=== PATIENT | female | born 1985 | race Caucasian/White ===

== ENCOUNTER 2024-05-24 06:28 | Day surgery (SDC) | payer BC ==
[2024-05-22 10:00] LABS: Specific Gravity 1.011 (1.005-1.030); Sqamous Epithelial <5 /HPF (None Seen); Urine Bacteria <20 /HPF (<20); Urine Bilirubin NEGATIVE (Negative); Urine Blood 1+ (Negative); Urine Clarity Clear (Clear); Urine Color Light-Yellow (Yellow); Urine Culture Reflex Order NOT NEEDED; Urine Glucose NEGATIVE (Negative); Urine Ketones NEGATIVE (Negative); Urine Microscopic Reflex YN ORDER UMIC; Urine Nitrite NEGATIVE (Negative); Urine Protein NEGATIVE (Negative); Urine RBC <5 /HPF (None Seen); Urine Urobilinogen Normal (Normal); Urine WBC <5 /HPF (<5); Urine Yeast (Budding) Trace /HPF (None Seen)
[2024-05-22 10:10] LABS: Absolute Basophils 0.1 K/uL (0-0.5); Absolute Eosinophils 0.3 K/uL (0-0.5); Absolute Lymphocytes (CBC) 2.2 K/uL (0.7-4.9); Absolute Neutrophil 6.2 K/uL (1.8-8.0); Basophils % 0.9 % (0-1.3); Eosinophils % 3.2 % (0-4.4); Hematocrit 40.1 % (36.0-45.0); Hemoglobin 13.5 g/dL (12.0-15.0); Lymphocytes % 22.8 % (15.3-44.8); MCH 29.9 pg (27.0-35.0); MCHC 33.5 g/dL (32.0-36.0); MCV 89.3 fL (80-100); MPV 7.5 fL (7.6-11.3); Neutrophils % 63.1 % (41.7-73.7); Nucleated Red Blood Cells % 0.1 % (0-0); Platelets 301 thou/uL (152-406); RBC Red Blood Cell Count 4.49 M/uL (3.86-4.86); Red Cell Distribution Width 13.5 % (12.1-15.2)
[2024-05-24] MEDS ORDERED: Ringers Lactate 1,000 ML IV ONE ×2 (06:48→13:53)
[2024-05-24] MEDS ORDERED: LIDOCAINE 2% MPF 5 ML VIAL ONE (06:55)
[2024-05-24] MEDS ORDERED: ONDANSETRON 4 MG/2 ML VIAL ONE (06:55)
[2024-05-24] MEDS ORDERED: GLYCOPYRROLATE 0.2 MG/ML SYR ONE (06:55)
[2024-05-24] MEDS ORDERED: NEOSTIGMINE 1 MG/ML -10 ML VIAL ONE (06:55)
[2024-05-24] MEDS ORDERED: ROCURONIUM 50 MG/5 ML VIAL IV ONE ×2 (06:55→08:14)
[2024-05-24] MEDS ORDERED: FENTANYL CITR 100 MCG/2 ML ONE ×3 (06:56→08:26)
[2024-05-24] MEDS ORDERED: MIDAZOLAM HCL 2 MG/2 ML INJ ONE (06:56)
[2024-05-24] MEDS ORDERED: propofoL 200 MG/20 ML VIAL IV ONE (06:56)
[2024-05-24] MEDS: SCOPOLAMINE HYDROBROMIDE PATCH TD ONE (07:17)
[2024-05-24] MEDS: CEFAZOLIN SODIUM 2 GM/VIAL ONE (07:40)
[2024-05-24] MEDS: CEFAZOLIN SODIUM 1 GM/VIAL ONE (07:40)
[2024-05-24] MEDS ORDERED: EPHEDRINE SULF 50 MG/ML VIAL ONE (07:57)
[2024-05-24] MEDS: BUPIVACAINE 0.25% PF 30 ML VIAL ONE (08:20)
[2024-05-24] MEDS: Ringers Lactate 1,000 ML IV ONE (09:00)
[2024-05-24] MEDS ORDERED: MEPERIDINE HCL 25 MG/ML SYR ONE (09:22)
[2024-05-24] MEDS ORDERED: KETOROLAC 30 MG/ML INJ ONE (09:34)
[2024-05-24] MEDS ORDERED: Mastisol Adhesive Liq ONE (09:41)
[2024-05-24] MEDS: HYDROMORPHONE HCL 1 MG/ML INJ ONE (10:27)
[2024-05-24 10:46] VITALS: O2SAT 97
[2024-05-24 11:08] LABS: Urine Specific Gravity/Preg 1.025 (1.005-1.030)
[2024-05-24] MEDS: METOCLOPRAMIDE 10 MG/2mL INJ ONE (11:12)
[2024-05-24] MEDS ORDERED: HYDROCODONE/APAP 7.5/325 MG TAB ONE (11:46)
[2024-05-24] MEDS: HYDROCODONE/APAP 7.5/325 MG TAB PO ONE (11:50)
[2024-05-24 13:33] VITALS: TEMP 98.1
[2024-05-24 16:08] VITALS: BP 134/84
--- NOTE | 2024-05-24 20:34 | OP ---
Date of Procedure: 05/24/2024 Surgeon: Lula Hdez MD Licensed Life And Health Agent: Yohana Munguia. Preoperative Diagnoses: Abnormal uterine bleeding-A/L, pelvic pain, dysmenorrhea. Postoperative Diagnoses: Abnormal uterine bleeding-A/L, pelvic pain, dysmenorrhea, and endometriosis of the left anterior cul-de-sac. Procedures Performed: 1.Total laparoscopic hysterectomy. 2.Endometriosis excision from the anterior cul-de-sac. Anesthesia: General endotracheal. Specimens: Uterus, endometriosis from the left anterior cul-de-sac. Complications: No complications. Drains: No drains. Condition: Stable. Estimated Blood Loss: 25. Urine Output: 400. Fluids: Ringer's lactate 1400. Findings: Endometriosis was found on the left anterior cul-de-sac. There was scar in the area of pr ior excisions in the bilateral lateral miller, but both ureters appeared to be peristaltic without any evidence of periureteric endometriosis or lateral wall endometriosis. There was 1 implant that is s uspicious at the uterosacral right pararectal space and this was cauterized and removed along with th e specimen. The cul-de-sac was mostly scarred, but there were no significant bowel adhesions. Both ovaries were unremarkable. Appendix, liver, all other upper abdominal peritoneal surfaces were examined as well and unremarkable without any other implants. Indications: The patient is a 39-year-old lady, 0, who initially presented 2 years ago with pelvic pain. She had an IUD. IUD was removed. Hysteroscopy was performed alongside laparoscopy, en dometriosis excision, bilateral salpingectomy. There was significant endometriosis. Left ureterolys is was done as well at that time. She had pain relief for a few months, but had recurrent pain. Her surgery was in December 2022. At the time patient returned, her bleeding was abnormal and prolonged, al though it was not heavy. Bleeding was a significant issue for the patient. She was treated medically with GnRH antagonist, Orilissa and Myfembree samples, but given Orilissa ma lior of the time. With this, she did not have any significant improvement in her pain nor bleeding . Her bleeding still continued to be regular, although much solar engineer. Cramping and pain was present most of the time. The patient had returned multiple times asking for hysterectomy, but we have given her adequate trial of medical treatment because the complete resolution of pain with a hysterectomy was not guaranteed. The patient understood this. If there was remnant endometriosis, then we would excise. The possibility of a ureteric stent on the left side there was scarring and need for identif ication or for recognition of an injury, so she was consented for hysterectomy, endometriosis excisio n, and all the questions were answered in the office, then the preoperative area with her friend by moises hawkins. The consent was done. Ovarian preservation is highly recommended in this young patient for preservation of hormonal function even though recurrence of endometriosis is a possibility and repea t surgery needed for that or an adnexal mass. The patient understood the benefit of ovarian preserva tion. She underwent testing with an ultrasound and endometrial sampling last year was negative, so there wa s no repeat sampling performed. Description Of Procedure: She was taken back to the OR. She was placed in a supine fashion on the o perating table, general anesthesia was given. She was placed in a dorsal lithotomy position using Al elie stirrups. Abdomen was prepped with ChloraPrep. Vulva, vagina, and perineum with Betadine and dr aped in a sterile fashion. SCDs were started. The patient was grounded. Positioning was checked. Time-out was done and procedure started. 3 g of Ancef was given prior to the surgery. 1 cm curvilinear incision was made under the umbilicus, dissected to the fascia. Fascia picked up wi th 2 Katherine clamps and incised with a 15 blade. The fascia was tagged with 0 Vicryl sutures. Perito neum entered bluntly. S retractors placed and after adequate insufflation, site of entry was checked and was unremarkable. The patient was placed in Trendelenburg position. After examining the upper peritoneal surfaces, liver, gallbladder, and her appendix. Then, pelvic examination was performed. The scar of the previous excision was present, but the previous area is completely unremarkable. The anterior cul-de-sac implants were seen and plan was to remove them. A 5 left lower quadrant and a 10/12 suprapubic ports were placed under direct vision. The epiploicae of the sigmoid colon, the lower portion of the sigmoid were picked up with 3-0 Monocryl sutures and through the left upper quadrant. A Abhay-Hunter needle was used to pharmacy picking technician the Monocryl suture an d bringing it out for retraction. Endometriosis excision: The peritoneum was scored all around the endometriotic implants in a like juan carlos goff and the peritoneum was stripped from the bladder. Once this was performed, the specimen was bolanos nded out for permanent pathology. The 1 implant that was present in the posterior right uterosacral ligament seemed to need an excision. So, I cauterized this and made a cut lateral to it so that I co uld take the dissection wider to remove this portion. Uterus hysterectomy: Utero-ovarian ligament on the left side, round ligament were all taken down wit h the help of the LigaSure. Anterior peritoneum and posterior opened up all the way down to the blad maikel flap on the front and the posterior cup in the back. A medium cup wall was placed in the uterus for me to do the hysterectomy. After the bladder was dissected down inferiorly, at least 2.5 cm from the cup, then anterior peritone um was completely taken down visualizing the vessels. Vessels were well skeletonized using the bipol ar. Then, I went over the vessels with the bipolar director regulatory agency followed by the LigaSure. Cardinal li gaments were also taken down in a systematic fashion in a similar way and then the opposite side was tackled in a similar fashion, taking down the utero-ovarian ligament, round ligament, broad ligament. Anterior peritoneum opened to connect the bladder flap. Posterior peritoneum taken to the posterio r cup. Broad ligament was taken down, skeletonized vessels, and vessels cauterized and cut with bipo lar and then the monopolar hook blade. The colpotomy was then performed a monopolar hook blade in a circumferential fashion and the specimen was detached and retrieved through the vagina. The vaginal cuff was thoroughly irrigated and suctioned. The cul-de-sac had obliteration. This was careful to take down to identify the borders of the rectosigmoid both in the midline where it came ov er to the posterior vaginal wall and laterally in the pararectal spaces. Thorough irrigation suction was performed. Vaginal cuff was difficult to be occluded because the can al was very narrow, so very small occluder was placed at the entrance and the surgical dressing maker was holdi ng this the entire time I closed the vagina. The vaginal angles were closed with 2-0 PDS 2 simple an gle stitches and then three 0 PDS sutures in the middle. The central and the left one were done in f ull thickness including the peritoneum of the posterior wall and then the right lateral one was just done without including the peritoneum as there was significant scar. There was excellent hemostasis. Peristalsis of the ureters was noted from the pelvic brim to the ureteric tunnel without any eviden ce of injury of electrical, mechanical, or thermal. Then, the patient was taken out of Trendelenburg . The bowel was released. The gas was desufflated. All the ports were removed under direct vision. Fascia was then closed after the specimen was removed and the anchoring sutures in the edges of the fascia were tied together. Simple 3-0 Vicryl stitch at the suprapubic fascial site. Skin incision were closed with interrupted 4-0 Monocryl. The Carter was removed and the vaginal bulb. There was a slight pickup of the posterior vaginal epithelium while closing the cuff on the patient's right side. The second stitch from the right angle, but this is unremarkable and left alone. Instrument, needle, and sponge counts were correct. EBL 25. She will follow up in 1 week and 4 week s. Her friend was debriefed about her procedure. LUIS/AMPARO Voice ID: [id number] Report ID: [id number]
--- NOTE | 2024-05-25 15:58 | EKG ---
Test Date: 2024-05-22 Test Time: 10:32:21 Medical Technologist Chemistry: RONNI MEASUREMENT RESULTS: Intervals: Rate: 94 OR: 150 QRSD: 100 QT: 398 QTc: 497 [place]: P: 77 OR: 150 QRS: 58 T: 36 INTERPRETIVE STATEMENTS: Normal sinus rhythm Cannot rule out Anterior infarct, age undetermined Abnormal ECG Compared to ECG 11/07/2008 15:04:23 Myocardial infarct finding now present Sinus arrhythmia no longer present Electronically Signed On 05-25-24 15:52:22 INFORMATION SYSTEMS AUDITOR by Christiano Ibarra
== END 2024-05-24 16:06 | disposition home or self-care (01) ==
LOC: OR 06:28
PROVIDERS: ATTEND Obstetrics & Gynecology
PROC: 0UBF4ZZ Excision of Cul-de-sac, Percutaneous Endoscopic Approach (ICD-10-PCS; 2024-05-24)
PROC: 0UT94ZZ Resection of Uterus, Percutaneous Endoscopic Approach (ICD-10-PCS; principal; 2024-05-24 07:30)
DX: N92.0 Excessive and frequent menstruation with regular cycle (principal); N94.6 Dysmenorrhea, unspecified; R10.2 Pelvic and perineal pain; N80.319 Endometriosis of the anterior cul-de-sac, unspecified depth; N88.8 Other specified noninflammatory disorders of cervix uteri; D25.9 Leiomyoma of uterus, unspecified
CPT/HCPCS: 36415; 81001; 81025; 85025; 86850; 86900; 86901; 88305; 88307; 93005; J0690; J1171; J2003; J2175; J2250; J2405; J2704; J2710; J2765; J3010; J7120

== ENCOUNTER 2025-01-28 05:46 | Day surgery (SDC) | payer BC ==
[2025-01-28] MEDS ORDERED: LIDOCAINE 1% MPF 5 ML VIAL ONE (06:12)
[2025-01-28] MEDS ORDERED: BUPIVACAINE 0.5% PF 10 ML VIAL ONE (06:12)
[2025-01-28] MEDS ORDERED: FENTANYL CITR 100 MCG/2 ML ONE (06:13)
[2025-01-28] MEDS ORDERED: EPINEPHRINE 1 MG/ML VIAL ONE (06:13)
[2025-01-28] MEDS ORDERED: MIDAZOLAM HCL 2 MG/2 ML INJ ONE (06:13)
[2025-01-28] MEDS: CLINDAMYCIN 600MG/D5W 50 ML IV ONE (06:20)
[2025-01-28] MEDS: Ringers Lactate 1,000 ML IV ONE (06:20)
[2025-01-28] MEDS ORDERED: BACITRACIN OINTMENT 14 GM TUBE TOP ONE (06:30)
[2025-01-28] MEDS ORDERED: LIDOCAINE 2% MPF 5 ML VIAL ONE (06:54)
[2025-01-28] MEDS ORDERED: KETOROLAC 30 MG/ML INJ ONE (06:54)
[2025-01-28] MEDS ORDERED: ONDANSETRON 4 MG/2 ML VIAL ONE (06:54)
[2025-01-28] MEDS ORDERED: ROCURONIUM 50 MG/5 ML VIAL IV ONE (06:54)
[2025-01-28] MEDS ORDERED: Phenylephrine HCl 10 MG/ML 1 ML VIAL ONE (08:54)
[2025-01-28 11:07] VITALS: BP 131/77; TEMP 97; O2SAT 95
== END 2025-01-28 10:58 | disposition home or self-care (01) ==
LOC: OR 05:46
PROVIDERS: ATTEND Podiatrist Foot & Ankle Surgery
PROC: 0LNW0ZZ Release Left Foot Tendon, Open Approach (ICD-10-PCS; 2025-01-28)
PROC: 0LUP0KZ Supplement Left Lower Leg Tendon with Nonautologous Tissue Substitute, Open Approach (ICD-10-PCS; principal; 2025-01-28 07:00)
DX: M66.872 Spontaneous rupture of other tendons, left ankle and foot (principal); M65.872 Other synovitis and tenosynovitis, left ankle and foot; I10 Essential (primary) hypertension; J45.909 Unspecified asthma, uncomplicated; E66.01 Morbid (severe) obesity due to excess calories; Z68.41 Body mass index [BMI] 40.0-44.9, adult
CPT/HCPCS: 27652; 28220; J2704; J2003 ×2; J2371; J2250; J3010; J1100 ×2; J0171; J2405; J7120